=== PATIENT | male | born 1955 | race Caucasian/White ===

== ENCOUNTER 2018-09-13 15:32 | Emergency (ER) | payer BC ==
--- NOTE | 2018-09-13 17:09 | ED ---
Laceration/Wound HPI - HPI Summary HPI Summary: 63-year-old male presents with laceration to left-sided face today. He states he was accidentally hit with a tool on the left side of face. No nausea or vomiting. Is not on blood thinners. Denies any headache. No nausea vomiting. Has some bruising noted near the left eye. The area is actively bleeding. no change in vision. Tetanus up-to-date - History of Current Complaint Stated Complaint: FACE LAC PER PT Time Seen by Provider: 09/13/18 16:38 Pain Intensity: 0 - Allergy/Home Medications Allergies/Adverse Reactions: Allergies Allergy/AdvReac Type Severity Reaction Status Date / Time No Known Allergies Allergy Verified 09/13/18 15:39 PMH/Surg Hx/FS Hx/Imm Hx Endocrine/Hematology History: Denies: Hx Anticoagulant Therapy, Hx Diabetes Cardiovascular History: Denies: Hx Hypertension Infectious Disease History: No Infectious Disease History: Denies: Traveled Outside the [place] in Last 30 Days - Family History Known Family History: Positive: Non-Contributory - Social History Alcohol Use: Occasionally Substance Use Type: Reports: None Smoking Status (MU): Never Smoked Tobacco Review of Systems Negative: Fever Negative: Vomiting Positive: Other - laceration left side of face Negative: Headache All Other Systems Reviewed And Are Negative: Yes Physical Exam Triage Information Reviewed: Yes Vital Signs On Initial Exam: Initial Vitals Temp Pulse Resp BP Pulse Ox 98 F 93 14 144/84 97 09/13/18 15:40 09/13/18 15:40 09/13/18 15:40 09/13/18 15:40 09/13/18 15:40 Vital Signs Reviewed: Yes Appearance: Positive: Well-Appearing Skin: Positive: Warm, Dry, Other - 3cm by 1/2cm laceration to left side of face Head/Face: Positive: Normal Head/Face Inspection, Other - no step off, some ecchymosis near left eye Eyes: Positive: Normal, EOMI, ASHLIE, Conjunctiva Clear ENT: Positive: Pharynx normal Neck: Positive: Other: - nontender neck, full ROM neck Respiratory/Lung Sounds: Positive: Clear to Auscultation, Breath Sounds Present Cardiovascular: Positive: Normal, RRR Musculoskeletal: Positive: Normal Neurological: Positive: Normal Psychiatric: Positive: Normal Procedures - Laceration/Wound Repair 1 Location: face Description: Linear Anesthesia: Local, 1.0% Length, Depth and Shape: 3cm by 1/2cm Irrigated w/ Saline (ccs): 100 Laceration/Wound Explored: no foreign body removed Closure: Single Layer Suture Type: Prolene Number of Sutures: 3 Diagnostics - Vital Signs Vital Signs Temp Pulse Resp BP Pulse Ox 09/13/18 15:40 98 F 93 14 144/84 97 - Laboratory Lab Statement: Any lab studies that have been ordered have been reviewed, and results considered in the medical decision making process. Laceration Repair Course/Dx - Course Course Of Treatment: 63-year-old male presents with laceration to left-sided face today. He states he was accidentally hit with a tool on the left side of face. No nausea or vomiting. Is not on blood thinners. Denies any headache. No nausea vomiting. Has some bruising noted near the left eye. The area is actively bleeding. no change in vision. Tetanus up-to-date. On exam has 3cmby 1/2cm laceration near his left eyebrow. Cleaned area and place 3 sutures. Told to the area clean and dry. Patient understands agrees with plan. - Differential Dx Differental Diagnoses: Abrasion, Avulsion, Laceration - Clinical Impression Provider Diagnoses: Facial laceration Discharge - Sign-Out/Discharge Documenting (check all that apply): Patient Departure Patient Received Moderate/Deep Sedation with Procedure: No - Discharge Plan Condition: Good Disposition: HOME Patient Education Materials: Care For Your Stitches (ED) Referrals: Steven Garg MD [Primary Care Provider] - Additional Instructions: Keep area clean and dry for 24 hours Take Tylenol or ibuprofen for pain every 6 hours Return to ED or primary for suture removal in 5 days Return to ED if develop signs of infection such as fever, spreading redness, or pus formation - Billing Disposition and Condition Condition: GOOD Disposition: Home
[2018-09-13 17:17] VITALS: BP 151/84
== END 2018-09-13 17:17 | disposition home or self-care (01) ==
LOC: ED 15:32
DX: S01.112A Laceration without foreign body of left eyelid and periocular area, initial encounter (principal); W22.8XXA Striking against or struck by other objects, initial encounter; Y92.9 Unspecified place or not applicable
CPT/HCPCS: 12013; 99281